=== PATIENT | female | born 1975 | race Caucasian/White ===

== ENCOUNTER → 2017-12-19 00:58 | Outpatient (CLI) | payer BC, SELFPAY ==
--- NOTE | 2017-12-19 13:17 | DI.REPORT_ITS ---
SYMPTOM/DIAGNOSIS: ACUTE NECK PAIN M54.9, ACUTE LOW BACK PAIN M54.5, THORACIC BACK PAIN M54.9 CERVICAL SPINE: 12/19 Five views were obtained. There is a mild cervical kyphosis. There is vertebral body fixation anteriorly at C5-6 with plate and screw fixation in place. The intervertebral disc spaces appear fairly well maintained except at C5-6 where the disc space is effaced. Neural foramina appear well maintained on oblique views. CONCLUSION: Mild cervical kyphosis. No focal abnormality seen. THORACIC SPINE: 12/19 Three views were obtained. There is minimal hypertrophic spurring of the vertebral end plates at multiple levels throughout the thoracic region. The intervertebral disc spaces appear fairly well maintained. No other significant bony abnormality seen. LUMBOSACRAL SPINE: 12/19 Five views were obtained. There is a mild left convex lumbar scoliosis. The S- I joints appear intact. Vascular clips are noted in the right upper quadrant consistent with previous cholecystectomy. There is no evidence of spondylolysis or spondylolisthesis. Intervertebral disc spaces appear fairly well maintained. Minimal hypertrophic spurring of the vertebral end plates noted particularly at L4-5 and mild facet joint spurring is also noted at multiple levels. CONCLUSION: Minimal DJD of the lumbar spine.
== END ==
PROVIDERS: PCP Family Medicine; Visit Provider Family Medicine
DX: M54.2 Cervicalgia (principal); M54.5 Low back pain; M54.6 Pain in thoracic spine; M40.202 Unspecified kyphosis, cervical region; M47.814 Spondylosis without myelopathy or radiculopathy, thoracic region; M47.816 Spondylosis without myelopathy or radiculopathy, lumbar region
CPT/HCPCS: 72050; 72072; 72110

== ENCOUNTER 2018-06-04 15:08 | Outpatient (REF) | payer BC, SELFPAY ==
[2018-06-04 20:29] LABS: Bacteria Rare HPF (Negative); C & S Indicated? C&S Done As Ordered; Crystals Negative HPF (Negative); Epithelial Cells Many HPF (Negative); Mucus Negative (Negative); RBC 20-50 (0-2)
== END 2018-06-04 15:28 ==
LOC: NCHCN 15:08
PROVIDERS: PCP Family Medicine; Visit Provider Family Medicine
DX: R10.9 Unspecified abdominal pain (principal)
CPT/HCPCS: 81015; 87086

== ENCOUNTER 2019-05-08 01:57 | Outpatient (CLI) | payer OTHER, SELFPAY ==
--- NOTE | 2019-05-08 08:00 | DI.MAMMO_ITS ---
EXAM: MAMMO SCREENING CLINICAL HISTORY: SCREENING, [facility], Z00.00 TECHNIQUE: Mammograms were interpreted according to the usual protocol including computer analysis w [facility], tomosynthesis and C-view imaging. COMPARISON: FINDINGS: The breasts are of moderate density with fairly symmetrical distribution of fibroglandular tissue. N o dominant mass or clumped microcalcification is identified in either breast. Current examination is compared with previous examinations including January 2017 and there has been no gross interval ch leodan appearance comparison the previous studies. Clues no specific evidence of malignancy at this ti me. Routine screening examinations are suggested at yearly intervals due to the family history of br east carcinoma. IMPRESSION: Category 1 breast density category B
== END 2019-05-08 02:17 ==
PROVIDERS: PCP Family Medicine; Visit Provider Family Medicine
DX: Z00.00 Encounter for general adult medical examination without abnormal findings (principal); Z12.31 Encounter for screening mammogram for malignant neoplasm of breast; Z80.3 Family history of malignant neoplasm of breast
CPT/HCPCS: 77063; 77067

== ENCOUNTER 2019-05-23 13:46 | Outpatient (REF) | payer OTHER, SELFPAY ==
--- NOTE | 2019-05-23 10:30 | SKI_PTH ---
PATIENT: Myrna Hercules LOC: [facility] U#:[id number] AGE/SX: 44/F ROOM: RE05/23/[address]: Orquidea Wylie V : 1975 BED: DIS: 05/23/2019 SPEC #: [id number] RECD: 05/26/19 12:23 STATUS: SKYLER CUELLO #: [id number] ANIA: 05/23/19 10:[address]: Orquidea Wylie V DEPT: Surgical Specimen RECD BY: Anya Greer Tissues: 1 - SKIN BIOPSY(SHAVE/PUNCH) 2 - SKIN BIOPSY(SHAVE/PUNCH) Procedures: SKIN LEVEL 4 Comments: [id number]
== END 2019-05-23 14:06 ==
LOC: NCHCN 13:46
PROVIDERS: PCP Family Medicine; Visit Provider Family Medicine
DX: D23.61 Other benign neoplasm of skin of right upper limb, including shoulder (principal)
CPT/HCPCS: 88305

== ENCOUNTER 2019-06-20 10:31 | Outpatient (REF) | payer OTHER, SELFPAY ==
[2019-06-20 22:00] LABS: ALT 29 U/L (14-59); AST 17 U/L (15-37); Albumin 3.9 g/dL (3.4-5.0); Alkaline Phosphatase 193 U/L (46-116); Anion Gap 7.6 mmol/L (3-11); BUN 21 mg/dL (7-18); Bilirubin, Total 0.3 mg/dL (0.2-1.0); CO2 33.4 mmol/L (21.0-32.0); CREATININE 0.84 mg/dL (0.55-1.02); Calcium 9.6 mg/dL (8.5-10.1); Calculated LDL 164 mg/dL (<100); Chloride 100 mmol/L (98-107); Cholesterol 236 mg/dL (<200); Glucose 90 mg/dL (74-106); HDL Cholesterol 39 mg/dL (40-60); Potassium 3.8 mmol/L (3.5-5.1); Sodium 141 mmol/L (136-145); Total Protein 7.5 g/dL (6.4-8.2); Triglyceride 166 mg/dL (<150)
== END 2019-06-20 10:51 ==
LOC: NCHCN 10:31
PROVIDERS: PCP Family Medicine; Visit Provider Family Medicine
DX: Z00.00 Encounter for general adult medical examination without abnormal findings (principal); I10 Essential (primary) hypertension
CPT/HCPCS: 80053; 80061

== ENCOUNTER 2020-03-19 12:39 | Outpatient (REF) | payer OTHER, SELFPAY ==
[2020-03-19 20:13] LABS: Bilirubin Negative (Negative); Blood Moderate (Negative); Clarity Cloudy (Clear); Glucose Negative (Negative); Ketones Negative (Negative); Leukocyte Esterase Trace (Negative); Nitrite Positive (Negative); Specific Gravity 1.025 (1.005-1.025); Urobilinogen 0.2 EU/dL (Up TO 0.2); pH 6.5 (5-8)
[2020-03-19 20:21] LABS: Bacteria Many HPF (Negative); C & S Indicated? Yes; Casts Negative LPF (Negative); Crystals Negative HPF (Negative); Epithelial Cells Few HPF (Negative); Mucus Trace (Negative)
[2020-03-19 20:24] LABS: Anion Gap 8.9 mmol/L (3-11); BUN 16 mg/dL (7-18); CO2 33.1 mmol/L (21.0-32.0); CREATININE 0.83 mg/dL (0.55-1.02); Calcium 9.5 mg/dL (8.5-10.1); Calculated LDL 162 mg/dL (<100); Chloride 97 mmol/L (98-107); Cholesterol 233 mg/dL (<200); Glucose 88 mg/dL (74-106); HDL Cholesterol 38 mg/dL (40-60); Potassium 3.3 mmol/L (3.5-5.1); Sodium 139 mmol/L (136-145); Triglyceride 165 mg/dL (<150)
== END 2020-03-19 12:59 ==
LOC: NCHCN 12:39
PROVIDERS: PCP Family Medicine; Visit Provider Family Medicine
DX: Z00.00 Encounter for general adult medical examination without abnormal findings (principal); I10 Essential (primary) hypertension; R10.9 Unspecified abdominal pain
CPT/HCPCS: 80048; 80061; 87077; 81003; 81015; 87086; 87186

== ENCOUNTER 2020-03-29 01:51 | Outpatient (CLI) | payer OTHER, SELFPAY ==
--- NOTE | 2020-03-29 | DI.CT_ITS ---
EXAM: CT RENAL COLIC WO CLINICAL HISTORY: H/O URETERAL STENT REMOVED,Z98.89,RT FLANK PAIN,R10.9. TECHNIQUE: Imaging Protocol: Axial computed tomography images with coronal and sagittal reformatted images were created and reviewed. CONTRAST MATERIAL: Intravenous: Omnipaque 350 Contrast volume:structured data in ml Contrast route:I V - Oral: / no COMPARISON: CR ABDOMEN FLAT PLATE from 09/15/2016 FINDINGS: ABDOMEN: Lung Bases: Normal where visualized. Liver: Enlarged fatty liver.. No measurable mass. Gallbladder and biliary tract: Status post cholecystectomy. No biliary dilatation. Pancreas: Normal density, no abnormal calcifications or inflammatory process. Spleen: Normal. Kidneys: Normal size, contour and axis. No radiodense stones or obstructive uropathy. No masses seen. No perinephric collection. Adrenal glands: No masses seen. Abdominal Aorta: Abdominal portion non-dilated. Minimal calcification PELVIS: Bladder: Symmetric distention, no gross wall thickening. Bowel: No obstruction or bowel wall thickening. No diverticulosis. Normal quantity of stool. Peritoneal cavity: No ascites, collection or mesenteric inflammatory response. Bones: Mild degenerative changes. Reproductive: Status post hysterectomy. Small right ovarian cyst. IMPRESSION: Normal appearing kidneys. No evidence stones, hydronephrosis or perinephric collection. RADIATION DOSE DELIVERED: 1,117.24mGy.cm Total DLP DATA REPOSITORY: All CT scans at this facility are submitted to the National Radiology Data Registry (NRDR) Dose Index Registry (DIR) with the [employer] (ACR). RADIATION OPTIMIZATION: All CT scans at this facility use at least one of these dose optimization te chniques: automated exposure control; mA and/or kV adjustment per patient size (includes targeted exa ms where dose is matched to clinical indication); or iterative reconstruction.
== END 2020-03-29 02:11 ==
PROVIDERS: PCP Family Medicine; Visit Provider Family Medicine
DX: R10.9 Unspecified abdominal pain (principal); Z98.890 Other specified postprocedural states
CPT/HCPCS: 74176

== ENCOUNTER 2020-08-04 14:05 | Outpatient (REF) | payer OTHER, SELFPAY | END 2020-08-04 14:06 | disposition home or self-care (01) | LOC: NCHCN 14:05 | PROVIDERS: PCP Family Medicine; Visit Provider Physician Assistant Medical | DX: R10.31 Right lower quadrant pain (principal); N39.0 Urinary tract infection, site not specified | CPT/HCPCS: 87086; 87480; 87510; 87660 ==

== ENCOUNTER 2020-08-27 07:20 | Outpatient (CLI) | payer OTHER, SELFPAY | END 2020-08-27 07:21 | disposition home or self-care (01) | LOC: RT 07:23 | PROVIDERS: PCP Family Medicine; Visit Provider Nurse Practitioner Family | DX: F17.210 Nicotine dependence, cigarettes, uncomplicated (principal); E66.9 Obesity, unspecified; I24.9 Acute ischemic heart disease, unspecified | CPT/HCPCS: 94010 ==

== ENCOUNTER 2021-08-01 14:51 | Outpatient (REF) | payer OTHER, SELFPAY | END 2021-08-01 14:52 | disposition home or self-care (01) | LOC: NCHCN 14:51 | PROVIDERS: PCP Family Medicine; Visit Provider Nurse Practitioner Family | DX: N39.0 Urinary tract infection, site not specified (principal) | CPT/HCPCS: 87077; 87086; 87186 ==

== ENCOUNTER 2022-01-05 15:15 | Outpatient (REF) | payer OTHER, SELFPAY ==
[2022-01-05 17:05] LABS: Anion Gap 7.5 mmol/L (3-11); BUN 11 mg/dL (7-18); CO2 27.5 mmol/L (21.0-32.0); CREATININE 0.8 mg/dL (0.55-1.02); Calcium 8.8 mg/dL (8.5-10.1); Chloride 106 mmol/L (98-107); Estimated GFR 90.83 (mL/min/1.73m2); Glucose 85 mg/dL (74-106); Potassium 3.5 mmol/L (3.5-5.1); Sodium 141 mmol/L (136-145)
== END 2022-01-05 15:16 | disposition home or self-care (01) ==
LOC: NCHCN 15:15
PROVIDERS: PCP Family Medicine; Visit Provider Family Medicine
DX: I10 Essential (primary) hypertension (principal); Z00.00 Encounter for general adult medical examination without abnormal findings
CPT/HCPCS: 80048

== ENCOUNTER 2022-01-31 14:54 | Outpatient (CLI) | payer OTHER, SELFPAY ==
--- NOTE | 2022-01-31 14:40 | DI.RAD_ITS ---
Exam(s) XR FOOT RT COMPLETE EXAM: XR FOOT RT COMPLETE CLINICAL HISTORY: RT FOOT PAIN M79.671. TECHNIQUE: 2D digital imaging was performed of the right foot. Three images were obtained. AP, obl ique and lateral views were obtained. COMPARISON: No exams were available for comparison FINDINGS: BONES: No acute fracture is present. No bony destructive lesion is seen. JOINTS: No dislocation present. SOFT TISSUE: Normal. IMPRESSION: Unremarkable radiographs of the right foot. DATA REPOSITORY: RADIATION DOSE DELIVERED:
== END 2022-01-31 15:14 ==
PROVIDERS: PCP Family Medicine; Visit Provider Physician Assistant Medical
DX: M79.671 Pain in right foot (principal)
CPT/HCPCS: 73630

== ENCOUNTER 2022-03-10 13:55 | Outpatient (REF) | payer OTHER, SELFPAY ==
--- NOTE | 2022-03-10 10:15 | SKI_PTH ---
PATIENT: Myrna Hercules LOC: [facility]#:[id number] AGE/SX: 47/F ROOM: RE03/10/[address]: Orquidea Wylie V : 1975 BED: DIS: 03/10/2022 SPEC #: [id number] RECD: 03/10/22 15:55 STATUS: SKYLER REQ #: [id number] ANIA: 03/10/22 10:[address]: Orquidea Wylie V DEPT: Surgical Specimen RECD BY: Ivory Christopher Tissues: 1 - SKIN BIOPSY(SHAVE/PUNCH) Procedures: SKIN LEVEL 4 Comments: [id number]
== END 2022-03-10 13:56 | disposition home or self-care (01) ==
LOC: NCHCN 13:55
PROVIDERS: PCP Family Medicine; Visit Provider Family Medicine
DX: D23.72 Other benign neoplasm of skin of left lower limb, including hip (principal)
CPT/HCPCS: 88305

== ENCOUNTER 2022-04-20 16:39 | Outpatient (REF) | payer OTHER, SELFPAY | END 2022-04-20 16:40 | disposition home or self-care (01) | LOC: NCHCN 16:39 | PROVIDERS: PCP Family Medicine; Visit Provider Family Medicine | DX: N39.0 Urinary tract infection, site not specified (principal) | CPT/HCPCS: 87086 ==

== ENCOUNTER 2022-06-08 15:58 | Outpatient (REF) | payer BC, SELFPAY ==
[2022-06-08 15:17] LABS: HCT 43.3 % (36.0-46.0); HGB 14.4 g/dL (11.2-15.7); MCH 29.8 pg (27.0-33.0); MCHC 33.3 % (32.0-36.0); MCV 90 fL (80-95); MPV 9.6 fL (8.0-11.0); Platelet Count 358 10^3/uL (130-400); RBC 4.84 10^6/uL (3.93-5.22); RDW-SD 42.6 fL; WBC 9.84 10^3/uL (4.4-10.8)
[2022-06-08 15:38] LABS: Hemoglobin A1C 5.6 % (<5.7)
[2022-06-08 15:48] LABS: ALT 30 U/L (14-59); AST 20 U/L (15-37); Albumin 3.6 g/dL (3.4-5.0); Alkaline Phosphatase 191 U/L (46-116); Anion Gap 6.6 mmol/L (3-11); BUN 11 mg/dL (7-18); Bilirubin, Total 0.2 mg/dL (0.2-1.0); CO2 31.4 mmol/L (21.0-32.0); CREATININE 0.9 mg/dL (0.55-1.02); Calcium 9.6 mg/dL (8.5-10.1); Calculated LDL 135 mg/dL (<100); Chloride 106 mmol/L (98-107); Cholesterol 221 mg/dL (<200); Estimated GFR 78.37 (mL/min/1.73m2); Glucose 100 mg/dL (74-106); HDL Cholesterol 40 mg/dL (40-60); Potassium 3.3 mmol/L (3.5-5.1); Sodium 144 mmol/L (136-145); TSH (W/Ref FT4) 1.44 uIU/mL (0.36-3.74); Total Protein 7.3 g/dL (6.4-8.2); Triglyceride 230 mg/dL (<150)
== END 2022-06-08 15:59 | disposition home or self-care (01) ==
LOC: NCHCN 15:58
PROVIDERS: PCP Family Medicine; Visit Provider Family Medicine
DX: E78.5 Hyperlipidemia, unspecified (principal); N95.1 Menopausal and female climacteric states; Z00.00 Encounter for general adult medical examination without abnormal findings; I10 Essential (primary) hypertension
CPT/HCPCS: 80053; 80061; 85027; 83036; 84443

== ENCOUNTER 2022-06-30 18:15 | Outpatient (REF) | payer BC, SELFPAY ==
[2022-06-30 15:30] LABS: ALT 47 U/L (14-59); AST 27 U/L (15-37); Alkaline Phosphatase 195 U/L (46-116); BUN 22 mg/dL (7-18); Bilirubin, Total 0.3 mg/dL (0.2-1.0); CREATININE 1.1 mg/dL (0.55-1.02); Calcium 9.8 mg/dL (8.5-10.1); Chloride 103 mmol/L (98-107); Creatine Kinase 134 U/L (26-192); Glucose 99 mg/dL (74-106); Potassium 3.6 mmol/L (3.5-5.1); Sodium 141 mmol/L (136-145); Total Protein 7.6 g/dL (6.4-8.2)
[2022-06-30 15:44] LABS: Calculated LDL 88 mg/dL (<100); Cholesterol 158 mg/dL (<200); HDL Cholesterol 43 mg/dL (40-60); Triglyceride 136 mg/dL (<150)
== END 2022-06-30 18:16 | disposition home or self-care (01) ==
LOC: NCHCN 18:15
PROVIDERS: PCP Family Medicine; Visit Provider Family Medicine
DX: Z00.00 Encounter for general adult medical examination without abnormal findings (principal); E78.5 Hyperlipidemia, unspecified
CPT/HCPCS: 80053; 80061; 82550

== ENCOUNTER 2023-02-01 18:12 | Outpatient (REF) | payer BC, SELFPAY ==
[2023-02-01 19:02] LABS: ALT 49 U/L (14-59); AST 26 U/L (15-37); Albumin 4.1 g/dL (3.4-5.0); Alkaline Phosphatase 188 U/L (46-116); Anion Gap 11.2 mmol/L (3-11); BUN 17 mg/dL (7-18); Bilirubin, Total 0.3 mg/dL (0.2-1.0); CO2 27.8 mmol/L (21.0-32.0); CREATININE 0.9 mg/dL (0.55-1.02); Calcium 10.5 mg/dL (8.5-10.1); Chloride 99 mmol/L (98-107); Estimated GFR 77.88 (mL/min/1.73m2); Glucose 89 mg/dL (74-106); Potassium 4.1 mmol/L (3.5-5.1); Sodium 138 mmol/L (136-145); Total Protein 8.1 g/dL (6.4-8.2)
== END 2023-02-01 18:13 | disposition home or self-care (01) ==
LOC: NCHCN 18:12
PROVIDERS: PCP Family Medicine; Visit Provider Family Medicine
DX: I10 Essential (primary) hypertension (principal); R10.31 Right lower quadrant pain
CPT/HCPCS: 80053

== ENCOUNTER 2023-02-21 11:31 | Outpatient (REF) | payer BC, SELFPAY ==
[2023-03-15 13:12] LABS: Misc Referral (MAYO) See Comments
== END 2023-02-21 11:32 | disposition home or self-care (01) ==
LOC: NCHCN 11:31
PROVIDERS: PCP Family Medicine; Visit Provider Family Medicine
DX: Q78.0 Osteogenesis imperfecta (principal)
CPT/HCPCS: 81406; 81408; 81479

== ENCOUNTER 2024-08-27 16:18 | Outpatient (REF) | payer OTHER, SELFPAY | END 2024-08-27 16:19 | disposition home or self-care (01) | LOC: NCHCN 16:18 | PROVIDERS: PCP Family Medicine; Visit Provider Family Medicine | DX: N39.0 Urinary tract infection, site not specified (principal); R82.89 Other abnormal findings on cytological and histological examination of urine | CPT/HCPCS: 87086 ==

== ENCOUNTER 2024-09-19 13:17 | Outpatient (REF) | payer OTHER, SELFPAY ==
[2024-09-19 15:31] LABS: Bilirubin Negative (Negative); Blood Trace-intact (Negative); Clarity Clear (Clear); Glucose Negative (Negative); Ketones Negative (Negative); Leukocyte Esterase Negative (Negative); Nitrite Negative (Negative); Urobilinogen 0.2 mg/dL (Up to 0.2); pH 5.5 (5-8)
[2024-09-19 15:42] LABS: Bacteria Rare HPF (Negative); C & S Indicated? No; Casts Negative LPF (Negative); Crystals Rare Amorphous HPF (Negative); Epithelial Cells Rare HPF (Negative); Mucus Negative (Negative); RBC 0-2 HPF (0-2); WBC Negative HPF (0-5)
[2024-09-19 16:04] LABS: ALT 47 U/L (14-59); AST 30 U/L (15-37); Albumin 3.6 g/dL (3.4-5.0); Alkaline Phosphatase 179 U/L (46-116); Anion Gap 7.6 mmol/L (3-11); BUN 11 mg/dL (7-18); Bilirubin, Total 0.3 mg/dL (0.2-1.0); CO2 30.4 mmol/L (21.0-32.0); CREATININE 0.8 mg/dL (0.55-1.02); Calcium 9.6 mg/dL (8.5-10.1); Calculated LDL 101 mg/dL (<100); Chloride 103 mmol/L (98-107); Cholesterol 161 mg/dL (<200); Estimated GFR 89.15 (mL/min/1.73m2); Glucose 96 mg/dL (74-106); HDL Cholesterol 29 mg/dL (>or=50); Sodium 141 mmol/L (136-145); Total Protein 7.2 g/dL (6.4-8.2); Triglyceride 159 mg/dL (<150)
[2024-09-19 16:08] LABS: Hemoglobin A1C 5.7 % (<5.7)
[2024-09-19 17:01] LABS: Creatine Kinase 199 U/L (26-192)
== END 2024-09-19 13:18 | disposition home or self-care (01) ==
LOC: NCHCN 13:17
PROVIDERS: PCP Family Medicine; Visit Provider Family Medicine
DX: E78.2 Mixed hyperlipidemia (principal); I10 Essential (primary) hypertension; Z13.1 Encounter for screening for diabetes mellitus; R30.0 Dysuria
CPT/HCPCS: 80053; 80061; 82550; 81003; 81015; 83036

== ENCOUNTER 2025-01-08 19:34 | Emergency (ER) | payer OTHER, SELFPAY ==
[2025-01-08 19:42] VITALS: BP 151/95; PULSE 90; RESP 18; TEMP 36.9; O2SAT 93
--- NOTE | 2025-01-08 20:30 | DI.RAD_ITS ---
Exam(s) XR CHEST 2V PA LATERAL EXAM: XR CHEST 2V PA LATERAL CLINICAL HISTORY: productive cough TECHNIQUE: 2D digital imaging was performed. Two views. COMPARISON: CR CHEST 2 VIEWS PA,LAT from 03/28/2013 CR THORACIC SPINE from 12/19/[address] RENAL COLIC WO from 03/29/2020 FINDINGS: HEART: Normal size. Aorta: Not dilated. PULMONARY VASCULATURE: Normal. MEDIASTINUM: Unremarkable. LUNGS: Mild peribronchial thickening could indicate bronchitis. No focal infiltrate. PLEURAL SPACE: No pleural effusion or pneumothorax. BONE:Hardware in lower cervical spine. SOFT TISSUES: Unremarkable. IMPRESSION: Mild peribronchial thickening could indicate bronchitis. No focal infiltrate. The preliminary [facility] report was reviewed. DATA REPOSITORY: RADIATION DOSE DELIVERED:
--- NOTE | 2025-01-08 20:42 | W.ED.GENAD ---
Discharge Plan Disposition Patient Disposition: Home Condition: Stable Discharge Details Clinical Impression: Upper respiratory infection Primary Care Provider: Orquidea Wylie V ED Provider: Naun Diallo Home Meds and New Rx's Prescriptions: Continued aspirin [Aspir-81] 81 MG tablet,delayed release (DR/EC) 81 mg PO DAILY Multi-Day with Iron 1 EACH tablet 1 ea PO DAILY ibuprofen 600 MG tablet 600 mg PO Q6H PRN Qty: 60 Patient Comments: 08/06/14 New prescription. PG terazosin 2 MG capsule 2 mg PO QID Qty: 60 Patient Comments: none in a week phenazopyridine [Pyridium] 100 MG tablet 200 mg PO TID epinephrine [EpiPen 2-Blake] 0.3 MG/0.3 ML auto-injector 0.3 mg IM PRN oxycodone-acetaminophen [Percocet] 1 EACH tablet 1 tab-cap PO Q6H PRN Qty: 30 docusate sodium [Dulcolax Stool Softener (dss)] 100 MG capsule 100 mg PO BID Qty: 30 amoxicillin-pot clavulanate 1 TAB tablet 1 ea PO BID Qty: 14 nitroglycerin 0.4 MG tablet, sublingual 0.4 mg Sublingual PRN PRN (Reason: Chest Pain) Patient Comments: 08/06/14 Pt states has never taken to date. PG Tums E-X 300 MG tablet,chewable 1 - 2 tab PO PRN PRN omeprazole 20 MG capsule,delayed release(DR/EC) 20 - 40 mg PO DAILY PRN PRN ciprofloxacin HCl [Cipro] 500 MG tablet 500 mg PO BID Qty: 14 0RF polyethylene glycol 3350 [Miralax] 17 GM powder in packet 17 gm PO DAILY PRN (Reason: Constipation) Qty: 30 0RF ondansetron 4 MG tablet,disintegrating 4 mg PO QID PRNQty: 14 0RF nitrofurantoin monohyd/m-cryst [Macrobid] 100 MG capsule 100 mg PO BID Qty: 14 0RF Patient Comments: vomited dose tonight promethazine [Phenadoz] 25 MG suppository 25 mg WA Q6H PRN PRN (Reason: Nausea / Vomiting) Qty: 12 1RF hydrochlorothiazide 25 mg tablet 25 mg PO DAILY Discharge Instructions Instructions: Upper Respiratory Infection ED Additional Instructions: You were seen in the emergency department for your upper respiratory symptoms, there is no pneumonia seen on your chest x-ray, please take Tylenol and ibuprofen as needed for pain, follow-up with express care for failure to resolve in 1 to 2 weeks, return for any respiratory distress or emergent concerns. Referrals: Orquidea Wylie MD [Primary Care Provider, Medicine] Discharge Data Discharge Date/Time-TO BE ENTERED AT DEPARTURE: 01/08/25 21:36 HPI General Date/Time Provider Initiated Documentation: 01/08/25 19:54. HPI Narrative: 49 year-old female presents to ED today by POV/ambulating with a chief complaint of congestion, productive cough with onset over the past few days. Quality described as generalized cough and congestion, no radiation to chest pain, respiratory distress, nausea/vomiting, diarrhea, abdominal pain. Severity is described as mild to moderate. Palliating factors include nothing specific. Provoking factors include nothing specific. Patient not anticoagulated. Related Data Home Medications ?Medication ?Instructions ?Recorded ?Confirmed aspirin 81 mg tablet,delayed 81 mg PO DAILY 10/29/13 01/08/25 release (Aspir-) multivitamin-ferrous 1 ea PO DAILY 12/19/13 01/08/25 fumarate-folic acid 18 mg-400 mcg tablet (Multi-Day with Iron) nitroglycerin 0.4 mg sublingual 0.4 mg sublingual PRN PRN Chest 05/03/14 01/08/25 tablet Pain calcium carbonate (Tums E-X) 1 - 2 tab PO PRN PRN 08/03/14 01/08/25 omeprazole 20 mg capsule,delayed 20 - 40 mg PO DAILY PRN PRN 08/03/14 01/08/25 release ibuprofen 600 mg tablet 600 mg PO Q6H PRN #60 tab-caps 08/05/14 01/08/25 terazosin 2 mg capsule 2 mg PO QID #60 tab-caps 09/11/14 01/08/25 ciprofloxacin HCl 500 mg tablet 500 mg PO BID ##14 10/14/14 01/08/25 (Cipro) epinephrine 0.3 mg/0.3 mL 0.3 mg IM PRN 10/16/14 01/08/25 injection, auto-injector (EpiPen 2-Blake) phenazopyridine 100 mg tablet 200 mg PO TID 10/16/14 01/08/25 (Pyridium) nitrofurantoin 100 mg PO BID #14 caps 10/21/14 01/08/25 monohydrate/macrocrystals 100 mg capsule (Macrobid) ondansetron 4 mg disintegrating 4 mg PO QID PRN ##14 10/21/14 01/08/25 tablet polyethylene glycol 3350 17 gram 17 gm PO DAILY PRN Constipation 10/21/14 01/08/25 oral powder packet (Miralax) ##30 promethazine 25 mg rectal 25 mg WA Q6H PRN PRN Nausea / 10/22/14 01/08/25 suppository (Phenadoz) Vomiting #12 supp docusate sodium 100 mg capsule 100 mg PO BID #30 tab-caps 11/12/14 01/08/25 (Dulcolax Stool Softener (docusate)) oxycodone-acetaminophen 7.5 mg-325 1 tab-cap PO Q6H PRN #30 tab-caps 11/12/14 01/08/25 mg tablet (Percocet) amoxicillin 875 mg-potassium 1 ea PO BID #14 tabs 11/14/14 01/08/25 clavulanate 125 mg tablet hydrochlorothiazide 25 mg tablet 25 mg PO DAILY 01/08/25 01/08/25 Previous Rx's ?Medication ?Instructions ?Recorded ciprofloxacin HCl 500 mg tablet 500 mg PO BID ##14 10/14/14 (Cipro) nitrofurantoin 100 mg PO BID #14 caps 10/21/14 monohydrate/macrocrystals 100 mg capsule (Macrobid) ondansetron 4 mg disintegrating 4 mg PO QID PRN ##14 10/21/14 tablet polyethylene glycol 3350 17 gram 17 gm PO DAILY PRN Constipation 10/21/14 oral powder packet (Miralax) ##30 promethazine 25 mg rectal 25 mg WA Q6H PRN PRN Nausea / 10/22/14 suppository (Phenadoz) Vomiting #12 supp Allergies Allergy/AdvReac Type Severity Reaction Status Date / Time codeine (Codeine) AdvReac Severe heart races Unverified 01/08/25 19:45 cortisone AdvReac Severe vagal Unverified 01/08/25 19:45 response hydrocodone (Hydrocodone) AdvReac Severe heart races Unverified 01/08/25 19:45 hydromorphone HCl (From AdvReac Intermediate Nausea Unverified 01/08/25 19:45 Dilaudid) prochlorperazine edisylate AdvReac Intermediate Agitation Unverified 01/08/25 19:45 (From Compazine) prochlorperazine maleate AdvReac Intermediate Agitation Unverified 01/08/25 19:45 (From Compazine) General Stated Complaint: RespSymp ELISABETH: 4 Review of Systems All systems reviewed & are unremarkable except as noted in HPI and below Exam Narrative Exam Narrative: GENERAL APPEARANCE: Well-nourished, non-toxic, awake and alert, atraumatic, no acute distress. SKIN: Warm, pink, dry, intact, without rashes/lesions/ulcerations. HEAD: Normocephalic, atraumatic, normal hair distribution for gender/age. EYES: Normal conjunctiva, no exudates on lids/lashes. ENT: Nares patent, no circumoral cyanosis, no facial swelling NECK: Supple, trachea midline, painless cervical ROM. LUNGS/CHEST: Lungs CTA bilaterally- no rhonchi/rales/wheezes diffusely, non-labored respirations, normal A/P diameter, symmetrical expansion, no chest wall deformity HEART (CV/PV): Regular rate and rhythm without murmur, no peripheral edema, no JVD. ABDOMEN: Soft, non-distended, no guarding. MSK: Normal ROM, no swelling/deformity to bilateral UEs or LEs, moving all extremities without weakness, no cyanosis, spine midline without tenderness, normal curvature. NEURO: Mental Status AAOx4 - alert to person, place, time, events No facial droop, no forehead involvement. Motor: No focal weakness - strength 5/5 in bilateral UEs and LEs, proximal and distal, symmetric. Sensory: sensation intact to light touch globally. Gait normal: patient ambulated without ataxia into ED room. PSYCH: euthymic, cooperative, pleasant, appropriate speech Course Vital Signs Vital signs: Vital Signs Temperature 36.9 C 01/08/25 19:42 Pulse 90 01/08/25 19:42 Respiratory Rate 18 01/08/25 19:42 Blood Pressure 151/95 H 01/08/25 19:42 Pulse Oximetry 93 01/08/25 19:42 Temperature 36.9 C 01/08/25 19:42 Pulse 90 01/08/25 19:42 Respiratory Rate 18 01/08/25 19:42 Blood Pressure 151/95 H 01/08/25 19:42 Blood Pressure Position Supine 01/08/25 19:42 Pulse Oximetry 93 01/08/25 19:42 Pain Level 0 01/08/25 19:42 Medical Decision Making This dictation utilizes [id number] dictation software and may contain unedited grammatical errors. 49 year-old female presents to ED today by POV/ambulating with a chief complaint of congestion, productive cough with onset over the past few days. Quality described as generalized cough and congestion, no radiation to chest pain, respiratory distress, nausea/vomiting, diarrhea, abdominal pain. Severity is described as mild to moderate. Palliating factors include nothing specific. Provoking factors include nothing specific. Patients' medical history: Smoking history, obesity. Family and social history: tobacco use. Pertinent exam findings / vital signs include lungs CTA, vitals stable, no respiratory distress. Differential / pathologies of concern include viral syndrome, PNA. Diagnostic studies of: -XR Chest - patient wanted to leave without results- no PNA seen. Interventions of: -Recommend symptomatic treatment at home. ED Course/Assessment/Plan: 49-year-old female presents with upper respiratory infection cough and congestion without respiratory distress, no pneumonia seen on my read of the chest x-ray and patient was for discharge, I counseled her on conservative management at home and strict return criteria for any further respiratory distress or worsening fever. XR Read shows interstitial disease w smoking history, possible bronchitis- likely viral syndrome Findings not consistent with respiratory distress, pneumonia, hypoxia. Disposition of Upper Respiratory Infection. Patient verbalized understanding of the plan and return to ED criteria and engaged in shared decision making. Medical Records Medical records reviewed: Yes I reviewed the patient's medical records. Imaging Data Radiologic Study: Attestation: I personally reviewed and interpreted this imaging study as follows: Imaging: X-Ray Radiologist's impression: Exam: XR Chest Exam date and time: 01/08/2025 21:08 Age: 49 years old Clinical indication: Other: Productive cough TECHNIQUE: Imaging protocol: Radiologic exam of the chest. Views: 2 views. COMPARISON: CT RENAL COLIC WO 03/29/2020 08:46 FINDINGS: Lungs: Mild central interstitial thickening. No airspace consolidation. Pleural spaces: No pleural effusion. No pneumothorax. Heart/Mediastinum: No cardiomegaly. Bones/joints: Cervical spine fixation hardware is partially assessed. Intraperitoneal space: Right upper quadrant clips, probable cholecystectomy. IMPRESSION: Interstitial disease suggesting bronchitis. Dictated and Authenticated by: Jessie Johnson MD. [facility] All Active Problems (Updated 01/08/25 @ 21:26 by MIKEY Miranda) Upper respiratory infection (Acute) Smoker (Acute) Acute coronary insufficiency syndrome (Chronic 03/28/13) Obesity (Chronic) Migraine aura without headache (Chronic) Nephrolithiasis (Chronic) Right sided. Neck pain (Chronic) Disabled due to chronic neck pain and right sided numbness. H/O surgical procedure (Chronic) A. lavh with ovarian conservation planned 08/06/2014 b. shoulder arthroscopy 2008 c. cholecystectomy 2006 UTI (urinary tract infection) (Acute 08/16/14) Flank pain, acute (Acute 08/16/14) Renal dilatation (Acute 08/16/14) Medical History (Updated 01/08/25 @ 21:26 by MIKEY Miranda) Hydronephrosis of right kidney 10 days after LAVH. 08/20/14 percutaneous R nephrostomy tube placement at [facility] [place]. Thrombocythemia Plt >500 08/04/14. will repeat plt count after pt's anemia has resolved. Acute coronary syndrome 2012 CP. Eval at [facility] [place] neg arteriogram. Pt rarely requires nitroglycerin Menorrhagia with resulting anemia Surgical History (Updated 02/20/18 @ 14:35 by Acrisure MS) percutaneous nephrostomy (08/20/14) [facility] [place] Dr Steele. Hysterectomy, Laproscopic (08/06/14) LAVH with B salpingectomy. EBL 700cc. D/C POD1 s/p transfusion 2U PRBC. Cholecystectomy 2007 Arthroscopy, Shoulder 2009 R shoulder with labral and RTC debridement subacromial decompression and acromloplasty Family History Father Diabetes Hyperlipidemia Mother Personal history of malignant neoplasm unknown female CA. s/p hysterectomy. Alive Grandmother Personal history of malignant neoplasm breast CA Hyperlipidemia Social History Smoking/Tobacco Use Status: Former Tobacco Use Smoking risk assessment performed?: Yes Alcohol Intake: current Alcohol Intake frequency: holidays/special occasions only Drug use: Never Substance use type: does not use
[2025-01-08 21:35] VITALS: BP 151/95; PULSE 90; RESP 18; TEMP 36.9; O2SAT 93
--- NOTE | 2025-01-08 22:18 | DI.[facility]AD_ITS ---
PROCEDURE INFORMATION: Exam: XR Chest Exam date and time: 01/08/2025 21:08 Age: 49 years old Clinical indication: Other: Productive cough TECHNIQUE: Imaging protocol: Radiologic exam of the chest. Views: 2 views. COMPARISON: CT RENAL COLIC WO 03/29/2020 08:46 FINDINGS: Lungs: Mild central interstitial thickening. No airspace consolidation. Pleural spaces: No pleural effusion. No pneumothorax. Heart/Mediastinum: No cardiomegaly. Bones/joints: Cervical spine fixation hardware is partially assessed. Intraperitoneal space: Right upper quadrant clips, probable cholecystectomy. IMPRESSION: Interstitial disease suggesting bronchitis. Dictated and Authenticated by: Jessie Johnson MD. Orderin Yoel Magallon MD
== END 2025-01-08 21:36 | disposition home or self-care (01) ==
PROVIDERS: Emergency Provider Physician Assistant; PCP Family Medicine
DX: J06.9 Acute upper respiratory infection, unspecified (principal); Z72.0 Tobacco use
CPT/HCPCS: 99283 ×2; 71046